=== PATIENT | female | born 1955 | race Caucasian/White ===

== ENCOUNTER 2018-06-22 18:31 | Emergency (ER) | payer OTHER ==
[~2018-06-22] VITALS: Ht 157.5 cm; Wt 83.9 kg
[2018-06-22 18:41] VITALS: Ht 157.5 cm; Wt 83.9 kg
[2018-06-22 22:44] VITALS: BP 125/83
== END 2018-06-22 22:44 | disposition home or self-care (01) ==
LOC: ED 18:31
DX: S09.8XXA Other specified injuries of head, initial encounter (principal); W18.09XA Striking against other object with subsequent fall, initial encounter; Y93.89 Activity, other specified; Y92.89 Other specified places as the place of occurrence of the external cause; Y99.8 Other external cause status

== ENCOUNTER 2018-10-11 19:49 | Inpatient (IN) | payer SELFPAY ==
[~2018-10-11] VITALS: Ht 154.9 cm; Wt 83.9 kg
[2018-10-11 19:55] VITALS: Ht 154.9 cm; Wt 83.9 kg
[2018-10-11 20:37] LABS: BASOPHIL % 0.4 % (0-2); PLATELET COUNT 208 x10^3mcL (130-400); RED CELL DISTRIBUTION WIDTH 13.3 % (11.5-14.5)
[2018-10-11 20:45] LABS: CALCIUM 8.9 mg/dL (8.5-10.1); CHLORIDE SERUM 104 mmol/L (98-107); CREATININE SERUM 0.6 mg/dL (0.6-1.0); GFR1 > 60 mL/min; GLUCOSE SERUM 105 mg/dL (74-106); SODIUM SERUM 142 mmol/L (136-145)
[2018-10-11 20:49] LABS: ALBUMIN 3.6 g/dL (3.4-5.0); ALKALINE PHOSPHATASE 87 U/L (46-116); ALT/SGPT 37 U/L (14-59); AST/SGOT 26 U/L (15-37); BILIRUBIN TOTAL 0.29 mg/dL (0.20-1.00); TOTAL PROTEIN, SERUM 7.6 g/dL (6.4-8.2)
[2018-10-11 22:46] LABS: MAGNESIUM 2.2 mg/dL (1.8-2.4); PHOSPHOROUS 4.5 mg/dL (2.5-4.9)
[2018-10-11 22:47] LABS: CHOLESTEROL/HDL RATIO 4.4
[2018-10-11 23:16] VITALS: BP 144/62
[2018-10-12 04:27] LABS: BASOPHIL % 0.6 % (0-2); PLATELET COUNT 188 x10^3mcL (130-400); RED CELL DISTRIBUTION WIDTH 13.3 % (11.5-14.5)
[2018-10-12 04:38] LABS: CALCIUM 8.6 mg/dL (8.5-10.1); CARBON DIOXIDE 29.7 mmol/L (21-32); CHLORIDE SERUM 107 mmol/L (98-107); CREATININE SERUM 0.5 mg/dL (0.6-1.0); GFR1 > 60 mL/min; GLUCOSE SERUM 97 mg/dL (74-106); PHOSPHOROUS 3.9 mg/dL (2.5-4.9); POTASSIUM SERUM 4.1 mmol/L (3.5-5.1); SODIUM SERUM 142 mmol/L (136-145)
[2018-10-12 05:22] VITALS: BP 121/57
[2018-10-12 06:26] LABS: microscopic required? NO
[2018-10-12 08:06] LABS: urine erythrocyte NEGATIVE (NEGATIVE)
[2018-10-12 08:17] LABS: AMPHETAMINE QUAL UR NONE DETECTED (See below)
[2018-10-12 09:37] VITALS: BP 116/53
[2018-10-12 13:18] VITALS: BP 116/53
== END 2018-10-12 13:58 | disposition home or self-care (01) | DRG 206 ==
LOC: ED 19:49 → DU 21:54
PROVIDERS: Emergency Medicine; ADMIT General Practice
DX: M94.0 Chondrocostal junction syndrome [Tietze] (principal); E78.5 Hyperlipidemia, unspecified; I10 Essential (primary) hypertension; Z23 Encounter for immunization
CPT/HCPCS: 83880; 85378; 90658; J7030